=== PATIENT | female | born 1975 | race Caucasian/White ===

== ENCOUNTER 2021-06-16 10:10 | Emergency (ER) | payer OTHER ==
[2021-06-16 10:20] VITALS: BP 133/84; PULSE 83; TEMP 98.2; BMI 31.7
== END 2021-06-16 11:20 | disposition home or self-care (01) ==
LOC: JERFT 10:10
DX: S90.511A Abrasion, right ankle, initial encounter (principal); W50.3XXA Accidental bite by another person, initial encounter
CPT/HCPCS: 99282-25